=== PATIENT | female | born 2000 | race African-American/Black ===

== ENCOUNTER 2020-08-15 03:30 | Inpatient (IN) | payer OTHER ==
[2020-08-15 06:43] LABS: BASO % 0.7 % (0-2.0); EOS % 0.3 % (0-4.5); HEMATOCRIT 33.5 % (32.4-45.2); LYMPH % 21.8 % (8-40); MCH 27.7 pg (25.7-33.7); MCHC 32.9 g/dl (32.0-36.0); MEAN CELL VOLUME 84.2 fl (80-96); MEAN PLT VOLUME 9.2 fl (7.5-11.1); MONO % 7.8 % (3.8-10.2); NEUT % 69.4 % (42.8-82.8); PLATELET COUNT 295 K/MM3 (134-434); RBC 3.97 M/mm3 (3.60-5.2); RDW 15.1 % (11.6-15.6); WHITE BLOOD COUNT 7.8 K/mm3 (4.0-10.0)
[2020-08-15 06:49] VITALS: BMI 29.1
[2020-08-15 06:50] LABS: INR 0.91 (0.83-1.09)
[2020-08-15 06:53] LABS: ACTIVATED PTT 27.7 SECONDS (25.2-36.5)
[2020-08-15 07:02] LABS: BLOOD UREA NITROGEN 8.4 mg/dL (7-18); CALCIUM 9.6 mg/dL (8.5-10.1)
[2020-08-15 07:06] LABS: CREATININE 0.8 mg/dL (0.55-1.3)
[2020-08-15] MEDS ORDERED: PCA PUMP NR ONE (07:16)
[2020-08-15] MEDS ORDERED: FENTANYL/BUPIVACAINE/NS/PF - PCEA - 50 ML DISP.SYRIN EP ONE (07:16)
[2020-08-15] MEDS ORDERED: BUPIVACAINE HCL/PF 0.25% (2.5MG/ML) 10 ML VIAL ONE (07:21)
[2020-08-15] MEDS ORDERED: NALOXONE HCL 0.4 MG/ML VIAL IVPUSH PRN (07:54)
[2020-08-15] MEDS ORDERED: FENTANYL/BUPIVACAINE/NS/PF - PCEA - 50 ML DISP.SYRIN EP SCH (08:00)
[2020-08-15 08:17] LABS: HIV INTERPRETATION NEGATIVE (NEGATIVE)
[2020-08-15] MEDS ORDERED: OXYTOCIN 30 UNITS in 0.9% NS 30 UNIT/500 ML INFUS.BAG IVPB SCH (08:30)
[2020-08-15] MEDS ORDERED: OXYTOCIN 30 UNITS in 0.9% NS 30 UNIT/500 ML INFUS.BAG IVPB ONE (08:53)
[2020-08-15] MEDS ORDERED: OXYTOCIN 20 UNITS in 0.9% NS 20 UNIT/1,000 ML INFUS.BAG IV ONE (09:20)
[2020-08-15] MEDS ORDERED: BISACODYL 10 MG SUPP.RECT RC PRN (11:53)
[2020-08-15] MEDS ORDERED: METHYLERGONOVINE MALEATE 0.2 MG/1 ML AMP IM PRN (11:53)
[2020-08-15] MEDS ORDERED: BENZOCAINE 20% 57 GM BOTTLE TP PRN (11:53)
[2020-08-15] MEDS ORDERED: WITCH HAZEL 50% (TUCKS) 40 PAD/JAR PAD TP PRN (11:53)
[2020-08-15] MEDS ORDERED: BENZOCAINE 28 GM HEMORRHOIDAL OINTMENT TP PRN (11:53)
[2020-08-15] MEDS ORDERED: IBUPROFEN 600 MG TABLET (FP) PO PRN ×2 (11:53→14:18)
[2020-08-15] MEDS ORDERED: ACETAMINOPHEN 325 MG TABLET (FP) PO PRN ×2 (11:53→14:16)
[2020-08-15] MEDS ORDERED: OXYTOCIN 20 UNITS in 0.9% NS 20 UNIT/1,000 ML INFUS.BAG IV SCH (12:00)
[2020-08-15] MEDS: IBUPROFEN 600 MG TABLET (FP) PO PRN ×2 (15:16→20:52)
[2020-08-15] MEDS: ACETAMINOPHEN 325 MG TABLET (FP) PO PRN ×2 (15:17→20:51)
[2020-08-16 07:52] LABS: BASO % 0.5 % (0-2.0); EOS % 0.6 % (0-4.5); HEMOGLOBIN 9.4 GM/dL (10.7-15.3); LYMPH % 28.7 % (8-40); MCH 27.8 pg (25.7-33.7); MCHC 32.6 g/dl (32.0-36.0); MEAN CELL VOLUME 85.3 fl (80-96); MEAN PLT VOLUME 9.4 fl (7.5-11.1); MONO % 9.1 % (3.8-10.2); NEUT % 61.1 % (42.8-82.8); PLATELET COUNT 262 K/MM3 (134-434); RDW 14.8 % (11.6-15.6)
[2020-08-16] MEDS: ACETAMINOPHEN 325 MG TABLET (FP) PO PRN ×2 (08:13→19:44)
[2020-08-16] MEDS: IBUPROFEN 600 MG TABLET (FP) PO PRN ×2 (08:14→19:43)
[2020-08-16] MEDS ORDERED: SENNOSIDES/DOCUSATE COMBO (SENNA PLUS) TABLET (UD) PO PRN (22:00)
[2020-08-17] MEDS: ACETAMINOPHEN 325 MG TABLET (FP) PO PRN (03:06)
[2020-08-17] MEDS: IBUPROFEN 600 MG TABLET (FP) PO PRN (03:10)
[2020-08-17 09:34] VITALS: BP 126/77; PULSE 72; TEMP 98.1
== END 2020-08-17 12:00 | disposition home or self-care (01) | DRG 560 ==
LOC: JDEL 03:30 → JLDR 06:20 → J3W 11:55
PROVIDERS: ADMIT Obstetrics & Gynecology; ATTEND Obstetrics & Gynecology
PROC: 10E0XZZ Delivery of Products of Conception, External Approach (ICD-10-PCS; principal; 2020-08-15)
DX: O62.2 Other uterine inertia (principal); O42.02 Full-term premature rupture of membranes, onset of labor within 24 hours of rupture; Z3A.38 38 weeks gestation of pregnancy; Z37.0 Single live birth
CPT/HCPCS: 36415; 80048; 85025; 85610; 85730; 86780; 86850; 86900; 86901; 87389; C9803; U0003